=== PATIENT | male | born 1960 | race American Indian/Alaskan Native ===

== ENCOUNTER 2016-07-13 16:51 | Emergency (ER) | payer MEDICARE, MEDICAID ==
[~2016-07-13 16:51] MED LIST: APRESOLINE 10MG10 MG PO; ASPIR-LOW81 MG PO; ASPIRIN 32325 MG/TA1 PO; ASPIRIN 81M81 MG/TA2 PO; ATIVAN 1MG T1 MG/TAB PO; BACTRIM DS 8001 TAB PO; CENTRUM SILVER1 TAB PO; CIPRO 500MG TA500 MG PO; COLACE 100100 MG/CAP PO; COMPLETE SENIOR1 TA1 PO; COZAAR 50MG50 MG/TAB PO; COZAAR100 MG PO; DRISDOL50000 IU PO; HCTZ; HCTZ 25MG TAB25 MG PO; HYZAAR 12.5 MG-1 TAB PO; KLONOPIN 0.5MG0.5 MG PO; LEVAQUIN 5500 MG/TA1 PO; LIPITOR 80MG80 MG PO; LOPRESSOR 550 MG/TAB PO; LOPRESSOR100 MG PO; LORTAB 5/500 501 TAB PO; MACROBID 1100 MG/CAP PO; MAG-OX 400400 MG/TAB PO; MASON NATURAL2000 IU PO; METOPROLOL SUCC50 MG PO; MICARDIS HCT PO; MILK OF MA400 MG/52 PO; MIRALAX PA17 GM/Dose PO; MOBIC15 MG PO; MULTI VITAMINS1 TAB PO; NORCO 325 MG-101 TAB PO; NORCO 325 MG-51 TAB PO; NORCO 325 MG-7.1 TAB PO; PHARMASSURE CHE30 MG PO; PHARMASSURE ZIN50 MG PO; PREDNISONE20 MG PO; SENOKOT S 50 MG1 TAB PO; ST. JOSEPH81 M2 PO; SYNTHROID0.1 MG PO; SYNTHROID0.1 MG/TAB PO; THYROID; TYLENOL 325MG325 MG PO; VICODIN 5/5001 UDTAB PO; VITAMIN C500 MG PO; VITAMIN D 1001000 IU PO; ZESTRIL 10MG10 MG PO
[2016-07-13 17:00] VITALS: TEMP 97.2
[2016-07-13] MEDS ORDERED: ULTRAM 50MG TAB50 MG PO (17:15)
[2016-07-13 19:41] VITALS: BP 128/75; PULSE 80
== END 2016-07-13 20:26 | disposition home or self-care (01) ==
LOC: COL.ER 16:51
DX: F10.120 Alcohol abuse with intoxication, uncomplicated (principal); Y90.9 Presence of alcohol in blood, level not specified; M54.5 Low back pain; L89.329 Pressure ulcer of left buttock, unspecified stage; Z89.611 Acquired absence of right leg above knee; Z89.512 Acquired absence of left leg below knee; G82.20 Paraplegia, unspecified; W05.0XXA Fall from non-moving wheelchair, initial encounter; I25.10 Atherosclerotic heart disease of native coronary artery without angina pectoris; F17.210 Nicotine dependence, cigarettes, uncomplicated

== ENCOUNTER → 2016-07-19 | Outpatient (CLI) | payer MEDICARE, MEDICAID ==
[~2016-07-19] MED LIST changes: +BACTRIM DS 8001 TAB; +ULTRAM 50MG TAB50 MG PO
== END ==
LOC: WCC 08:43
DX: L89.159 Pressure ulcer of sacral region, unspecified stage (principal); Z89.512 Acquired absence of left leg below knee; Z89.511 Acquired absence of right leg below knee
CPT/HCPCS: 17717; A6212; G0463

== ENCOUNTER → 2016-08-09 | Outpatient (CLI) | payer MEDICARE, MEDICAID | LOC: WCC 08:32 | DX: L89.159 Pressure ulcer of sacral region, unspecified stage (principal); G82.20 Paraplegia, unspecified; Z89.612 Acquired absence of left leg above knee; Z89.611 Acquired absence of right leg above knee | CPT/HCPCS: 13973; 17717; A6199; A6212; G0463 ==

== ENCOUNTER → 2016-09-01 | Outpatient (CLI) | payer MEDICARE, MEDICAID | LOC: WCC 10:50 | DX: L89.159 Pressure ulcer of sacral region, unspecified stage (principal); G82.21 Paraplegia, complete; E66.01 Morbid (severe) obesity due to excess calories | CPT/HCPCS: 27514; G0463 ==

== ENCOUNTER 2016-09-27 18:37 | Emergency (ER) | payer MEDICARE, MEDICAID ==
[~2016-09-27 18:37] MED LIST changes: -BACTRIM DS 8001 TAB
[2016-09-27 18:47] VITALS: TEMP 98.9
[2016-09-27 19:28] LABS: BASO # 0.1 (0.0-0.2); BASO % 0.7 % (0.0-2.0); EOS # 0.1 (0.0-0.7); GRAN # 9.1 (1.4-6.5); HEMOGLOBIN 13.7 g/dl (13.5-18.0); LYMPH # 1.5 (1.2-3.4); LYMPH % 12.8 % (20.0-51.0); MEAN CELL VOLUME 86 fl (80.0-100.0); MEAN CORPUSCULAR HEMOGLOBIN 28 pg (27.0-31.0); MEAN CORPUSCULAR HGB CONC 33 g/dl (33.0-37.0); MEAN PLATELET VOLUME 10.2 fl (7.4-10.4); MONO # 0.8 (0.1-0.6); MONO % 7.2 % (1.7-9.3); PLATELET COUNT 306 K/mm3 (130-400); REDCELL DISTRIBUTION WIDTH-CV 15.3 % (11.5-14.5); WHITE BLOOD COUNT 11.7 K/mm3 (4.8-10.8)
[2016-09-27 20:00] LABS: ADJUSTED CALCIUM 9.9 mg/dL (8.4-10.2); ALANINE AMINOTRANSFERASE 35 U/L (21-72); ALBUMIN 4.2 gm/dL (3.5-5.0); ALKALINE PHOSPHATASE 109 U/L (50-136); ANION GAP 12 mmol/L (7-16); BILIRUBIN,TOTAL 0.5 mg/dL (0.0-1.0); BLOOD UREA NITROGEN 15 mg/dL (9-20); CALCIUM 10.1 mg/dL (8.4-10.2); CARBON DIOXIDE 24 mmol/L (22-30); CHLORIDE 104 mmol/L (98-107); CREATININE, serum 0.48 mg/dL (0.66-1.25); GLUCOSE 123 mg/dL (74-106); POTASSIUM 3.8 mmol/L (3.4-5.0); SODIUM 140 mmol/L (137-145); TOTAL PROTEIN 7.9 gm/dL (6.4-8.2)
[2016-09-27 20:08] LABS: B-TYPE NATRIURETIC PEPTIDE 477 pg/mL (0-125)
[2016-09-27 20:13] LABS: TROPONIN-I < 0.012 ng/mL (0.000-0.034)
[2016-09-27 20:33] LABS: PH 6 (5-8); SQUAMOUS EPITHELIAL 0-2 /hpf; URINE APPEARANCE Clear; URINE BACTERIA None Seen /hpf; URINE BILIRUBIN Negative (NEGATIVE); URINE BLOOD Negative (NEGATIVE); URINE COLOR Straw; URINE GLUCOSE Negative (NEGATIVE); URINE KETONE Negative (NEGATIVE); URINE RBC None Seen /hpf; URINE UROBILINOGEN Negative (NEGATIVE); URINE WBC 0-2 /hpf
[2016-09-27] MEDS ORDERED: ASPIRIN 81M81 MG/TA2 PO (21:13)
[2016-09-27] MEDS ORDERED: BACTRIM DS 8001 TAB (21:14)
[2016-09-27 21:57] VITALS: BP 177/101; PULSE 69
== END 2016-09-27 21:57 | disposition home or self-care (01) ==
LOC: COL.ER 18:37
PROVIDERS: Emergency Medicine
DX: I10 Essential (primary) hypertension (principal); M77.12 Lateral epicondylitis, left elbow; I25.10 Atherosclerotic heart disease of native coronary artery without angina pectoris; E11.9 Type 2 diabetes mellitus without complications; F41.9 Anxiety disorder, unspecified; N39.0 Urinary tract infection, site not specified; M77.8 Other enthesopathies, not elsewhere classified; Z89.611 Acquired absence of right leg above knee; Z89.512 Acquired absence of left leg below knee; G82.20 Paraplegia, unspecified; Z95.1 Presence of aortocoronary bypass graft
CPT/HCPCS: J2060

== ENCOUNTER → 2016-10-13 | Outpatient (CLI) | payer MEDICARE, MEDICAID ==
[~2016-10-13] MED LIST changes: +BACTRIM DS 8001 TAB
== END ==
LOC: COL.RAD 07:41
DX: I70.1 Atherosclerosis of renal artery (principal); S22.081S Stable burst fracture of T11-T12 vertebra, sequela; M43.8X4 Other specified deforming dorsopathies, thoracic region; I10 Essential (primary) hypertension; N32.89 Other specified disorders of bladder
CPT/HCPCS: Q9967

== ENCOUNTER → 2016-11-22 | Outpatient (CLI) | payer MEDICARE, MEDICAID | LOC: WCC | DX: L89.159 Pressure ulcer of sacral region, unspecified stage (principal); G82.20 Paraplegia, unspecified; E11.9 Type 2 diabetes mellitus without complications; Z89.612 Acquired absence of left leg above knee; Z89.611 Acquired absence of right leg above knee | CPT/HCPCS: 17717; 27510; A6197; A6212; G0463 ==